=== PATIENT | male | born 1960 | race Caucasian/White ===

== ENCOUNTER 2025-04-14 18:44 | Emergency (ER) | payer MEDICAID ==
[~2025-04-14] VITALS: Ht 172.7 cm; Wt 82.0 kg
[2025-04-14 18:46] VITALS: BP 184/98; PULSE 79; RESP 18; TEMP 98.6; O2SAT 97
== END 2025-04-14 21:25 | disposition home or self-care (01) ==
LOC: ER 18:44
DX: R42 Dizziness and giddiness (principal); R05.9 Cough, unspecified
CPT/HCPCS: 93005; 99281; 99283